=== PATIENT | female | born 1975 | race Caucasian/White ===

== ENCOUNTER 2017-06-01 18:46 | Emergency (ER) | payer MEDICAID ==
[~2017-06-01] VITALS: Ht 157.5 cm; Wt 77.1 kg
[~2017-06-01 18:46] MED LIST: IBUP400T21 PO
[2017-06-01 20:08] LABS: Urine Bacteria NONE SEEN /hpf (None Seen); Urine Blood Negative /uL (Negative); Urine Specific Gravity 1.028 (1.001-1.035); Urine WBC 1 /hpf (0 - 5)
[2017-06-01 20:13] LABS: Basophils # (auto) 0.1 uL; Basophils % (auto) 0.7 % (0.0-2.0); Eosinophils # (auto) 0.1 uL; Eosinophils % (auto) 1.4 % (0.0-7.0); Hematocrit 40.9 % (36.0-46.0); Hemoglobin 13.6 g/dL (12.2-16.2); Lymphocytes # (auto) 2.4 uL; Lymphocytes % (auto) 28.1 % (10.0-50.0); Mean Corpuscular Hemoglobin 30.6 pg (28.0-32.0); Mean Corpuscular Hgb Conc. 33.2 g/dL (32.0-36.0); Mean Corpuscular Volume 92.1 fL (80.0-100.0); Monocytes % (auto) 11.1 % (0.0-12.0); Neutrophils % (auto) 58.7 % (37.0-80.0); Nucleated Red Blood Cells % 0.1 %; Platelet Count (auto) 323 10^3/uL (140-450); Red Blood Cells 4.44 10^6/uL (4.0-5.20); Red Cell Distribution Width 13.4 % (11.8-14.3); White Blood Cell 8.6 10^3/uL (4.4-10.8)
[2017-06-01 20:32] LABS: INR 0.93 (0.9-1.15); Partial Thromboplastin Time 27.3 sec (22.64-33.71); Prothrombin Time 10.1 sec (9.37-12.3)
[2017-06-01 20:34] LABS: BUN/Creatinine Ratio 22.4; Calcium 9.6 mg/dL (8.5-10.1); Potassium 4.2 mmol/L (3.5-5.1)
[2017-06-01 20:36] LABS: Bilirubin, Total 0.4 mg/dL (0.2-1.0)
[2017-06-02 03:50] VITALS: BP 103/59
[2017-06-02] MEDS ORDERED: cefTRIAXone 1GM/10ml IVPUSH 10 ML IV ONE (04:00)
== END 2017-06-02 04:48 | disposition home or self-care (01) ==
LOC: ER 18:46
DX: L03.116 Cellulitis of left lower limb (principal); Z87.442 Personal history of urinary calculi; M79.89 Other specified soft tissue disorders
CPT/HCPCS: 36415; 80053; 81001; 85025; 85379; 85610; 85730; 93971; 96374

== ENCOUNTER 2021-04-17 15:54 | Emergency (ER) | payer MEDICAID ==
[~2021-04-17] VITALS: Ht 154.9 cm; Wt 105.2 kg
[~2021-04-17 15:54] MED LIST changes: -IBUP400T21 PO; +IBUP400T22 PO
[2021-04-17 16:26] VITALS: BP 171/93
[2021-04-17 16:47] LABS: Urine Bacteria NONE SEEN /hpf (None Seen); Urine Blood 3+ /uL (Negative); Urine Mucus FEW (None Seen); Urine Specific Gravity 1.022 (1.001-1.035); Urine WBC 28 /hpf (0 - 5)
== END 2021-04-17 19:32 | disposition home or self-care (01) ==
LOC: ER 15:54
DX: N39.0 Urinary tract infection, site not specified (principal); R11.2 Nausea with vomiting, unspecified; R19.7 Diarrhea, unspecified; Z79.1 Long term (current) use of non-steroidal anti-inflammatories (NSAID)
CPT/HCPCS: 71046; 81001; 81025